=== PATIENT | female | born 1990 | race Caucasian/White ===

== ENCOUNTER 2023-10-21 14:20 | Outpatient (CLI) | payer BC, SELFPAY ==
[2023-10-22 16:28] LABS: Progesterone 18.2 ng/mL
== END 2023-10-21 14:21 | disposition home or self-care (01) ==
LOC: ANHLAB 14:22
PROVIDERS: PCP Nurse Practitioner Family; Visit Provider Nurse Practitioner Family
DX: O36.80X0 Pregnancy with inconclusive fetal viability, not applicable or unspecified (principal); Z3A.00 Weeks of gestation of pregnancy not specified
CPT/HCPCS: 36415; 84144; 84702

== ENCOUNTER 2023-10-23 10:29 | Outpatient (CLI) | payer BC, SELFPAY | END 2023-10-23 10:30 | disposition home or self-care (01) | LOC: ANHLAB 10:30 | PROVIDERS: PCP Nurse Practitioner Family; Visit Provider Nurse Practitioner Family | DX: O36.80X0 Pregnancy with inconclusive fetal viability, not applicable or unspecified (principal); Z3A.00 Weeks of gestation of pregnancy not specified | CPT/HCPCS: 36415; 84702 ==

== ENCOUNTER 2023-10-29 08:19 | Outpatient (CLI) | payer BC, SELFPAY ==
--- NOTE | ~2023-10-29 | US_ITS ---
EXAMINATION: US OB <=14 wk fetus w TV DATE: 10/29/2023 08:45 INDICATION: Gestational dating TECHNIQUE: Real-time transabdominal and transvaginal obstetric ultrasound. FINDINGS: No prior studies for comparison. The uterus measures 8 x 5 x 4.6 cm. There is an intrauterine gestational sac, with pole identif ied. The crown rump length measures 0.27 cm, which correlates with a estimated gestational age of 5 weeks 6 days. heart tones are identified measuring 112 BPM. There is a moderate subchorionic hemorrhage. IMPRESSION: 1. SL IUP with an EGA of 5 weeks, 6 days (EDC by current ultrasound of 06/24/2024). 2: Moderate subchorionic hemorrhage. Reviewed, dictated and finalized at location B. IMPRESSION: 1. SL IUP with an EGA of 5 weeks, 6 days (EDC by current ultrasound of ). 2: Moderate subchorionic hemorrhage.
== END 2023-10-29 08:20 ==
LOC: GOSHIMG 08:20
PROVIDERS: PCP Nurse Practitioner Family; Visit Provider Nurse Practitioner Family
DX: O41.8X10 Other specified disorders of amniotic fluid and membranes, first trimester, not applicable or unspecified (principal); Z3A.00 Weeks of gestation of pregnancy not specified
CPT/HCPCS: 76801; 76817

== ENCOUNTER 2024-02-18 14:41 | Observation (INO) | payer BC, SELFPAY ==
--- NOTE | ~2024-02-18 | US_ITS ---
EXAMINATION: US OB limited DATE: 02/18/2024 15:50 INDICATION: Spotting during second trimester of TECHNIQUE: Real-time ultrasound of the pelvis was performed. The interpreting radiologist was not pre sent for the study. COMPARISON: None. FINDINGS: There is a single living fetus in vertex presentation. The placenta is posterior with caudal margin 3.7 cm from the internal cervical os. Normal cervical length of 4.9 cm. heart rate is 138 beats per minute (bpm). Normal amniotic fluid index of 12.1 cm (5th%-95%: 9.7-21.6 cm at 21 weeks estimate d gestational age). IMPRESSION: 1. Single living fetus in vertex presentation with heart rate of 138 bpm. 2. Normal amniotic fluid index of 12.1 cm. Reviewed, dictated and finalized at location B. ORK MANAGER IMPRESSION: 1. Single living fetus in vertex presentation with heart rate of 138 bpm . 2. Normal amniotic fluid index of 12.1 cm.
--- NOTE | 2024-02-18 15:28 | OBADM ---
This patient, Savannah Rodriguez, admitted to the OB room OB Post 116 for observation. Patient/family oriented to hospital policies and general routines including ID bracelet, bed and alarms, visiting hours, pain management, procedures, bathroom and other care routines, personal items, smoking policy, room service/diet, and visiting hours. Patient/Family are encouraged to report perceived risks to care and to ask questions if they do not understand what they are told or what they should do.
[2024-02-18 15:30] LABS: Add Urine Microscopic? NO; Appearance Urine Clear (Clear); Bilirubin Urine Negative (Negative); Blood Urine Negative (Negative); Color Urine Yellow (Yellow); Glucose Urine UA Negative (Negative); Ketones Urine 2+ mg/dL (Negative); Leukocyte Esterase Ur Negative LEU/UL (Negative); Nitrate Urine Negative (Negative); Protein Urine Negative (Negative); Specific Grav Ur 1.012 (1.001-1.035); Urobilinogen Urine 0.2 mg/dL (<2.0); pH Urine 6.5 (5.0-9.0)
--- NOTE | 2024-02-18 15:40 | PC.NURSE ---
1505--FHT's 150's.Pt does feel movement. Patient denies cramping; no c/o pain.
--- NOTE | 2024-03-05 20:18 | PM.OBTRLD ---
OB - Triage/Final Diagnosis Visit Information Comments/Additional reasons for admission: I have assessed the risk for this patient, Savannah Rodriguez, and determined that she would benefit from observation care. Evaluation Laboratory results: Laboratory Tests 02/18/24 15:11 Urine Color Yellow Urine Appearance Clear Urine pH 6.5 Ur Specific [place] 1.012 Urine Protein Negative Urine Glucose (UA) Negative Urine Ketones 2+ H Ur Blood (Man) Negative Urine Nitrate Negative Urine Bilirubin Negative Urine Urobilinogen 0.2 Leukocyte Esterase Rfl Negative Final Diagnosis (1) Spotting affecting in second trimester: Code(s): O26.852 - Spotting complicating , second trimester Status: Acute
== END 2024-02-18 16:08 | disposition home or self-care (01) ==
PROVIDERS: Admitting Provider Obstetrics & Gynecology; PCP Nurse Practitioner Family; Visit Provider Obstetrics & Gynecology
DX: O26.852 Spotting complicating pregnancy, second trimester (principal); Z3A.21 21 weeks gestation of pregnancy
CPT/HCPCS: 76815; 81003; G0378; G0379

== ENCOUNTER 2024-05-23 08:48 | Outpatient (CLI) | payer OTHER, SELFPAY ==
--- NOTE | ~2024-05-23 | US_ITS ---
EXAMINATION: US OB limited DATE: 05/23/2024 11:03 INDICATION: Variable cardiac decelerations. Assess amniotic fluid index. TECHNIQUE: Real-time ultrasound of the pelvis was performed. The interpreting radiologist was not pre sent for the study. COMPARISON: None. FINDINGS: There is a single living fetus in vertex presentation. The placenta is fundal. heart rate is 1 67 beats per minute (bpm). The amniotic fluid index is 7.0 cm, which is below the normal range (5th%- 95%: 7.9-24.9 cm at 35 weeks estimated gestational age). IMPRESSION: 1. Single living fetus in vertex presentation with heart rate of 167 bpm. 2. Oligohydramnios with mildly decreased amniotic fluid index of 7.0 cm. Reviewed, dictated and finalized at location A. ITAL NURSE IMPRESSION: 1. Single living fetus in vertex presentation with heart rate of 167 bpm . 2. Oligohydramnios with mildly decreased amniotic fluid index of 7.0 cm.
--- OUTSIDE RECORDS SUMMARY | 2024-05-23 08:59 | XMS_ITS | Patient Health Summary ---
Author Organization [facility] [employer] Address [address] [place] [address] Care Team Providers Care Receivable Clerk Name Role Phone Unavailable Primary Care Provider Unavailabl e Note from [facility],non-owned Affiliates and Associated Physician Practices is amultiple site organization consisting of ambulatory clinics and hospital sitesin [place], [place], [place] and [place]. This disclosure is being madepursuant to the Care Everywhere program and may not contain all information available regarding this patient. Last updated 17.[facility] [employer] Allergies No known active allergies Medications * Be aware that medications may not be up to date on this document. Alwaysverify current medications with the patient. * Vit-Fe Fumarate-FA ( vitamin) 28-0.8 MG tablet Take 1 (one) tablet by mouth once daily Social History Tobacco Use Types Packs/Day Years Used Date Smoking Tobacco: Never Assessed Estimated Date of Delivery Comme nts Yes 06/24/2024 Based on last me nstrual period of 09/18/2023 Sex and Gender Information Value Date Recorded Sex Assigned at Not on file Gender Identity Not on file Sexual Orientation Not on file Procedures * SONOGRAM - COMPLETE(Performed 04/24/2024) Performed for Encounter for ultrasound to assess growth (HCC), 31 weeks gestation of (HCC) * SONOGRAM - COMPLETE(Performed 02/11/2024) Performed for Encounter for anatomic survey (HCC), 20 weeks gestation of (HCC) Results * SONOGRAM - COMPLETE (04/24/2024 8:11 AM PIECE PRESSER) Only the most recent of2 resultswithin the time period is included. Linked Results Indication ======== Small for dates History ====== OB History 2. Para 0 [id number] Lab Tests Test Date Result NIPT Low risk (per patient) Maternal Assessment Physical Exam Height 160 cm, 5 ft 3 in. Weight 67 kg, 148 lb. Initial weight 58 kg, 128 lb. BMI 26.22 kg/m . Initial BMI 22.67 kg/m . Weight gain 9 kg, 20 lb Method ====== Transabdominal ultrasound. View: Sufficient ========= [place] . Number of fetuses: 1 Dating ====== Date Details Gest. age LINH LMP 09/18/2023 31 w + 2 d 06/24/2024 Stated LINH 31 w + 2 d 06/24/2024 U/S 04/24/2024 based upon AC, BPD, Femur, HC 31 w + 2 d 06/24/2024 Assigned dating based on the LMP, selected on 02/11/2024 31 w + 2 d 06/24/2024 General Evaluation Cardiac activity present. FHR 142 bpm. Presentation: cephalic Placenta: Placental site: posterior Amniotic fluid: Amount of AF: normal. MVP 4.1 cm. FEMI 11.9 cm. Q1 2.8 cm, Q2 2.6 cm, Q3 4.1 cm, Q4 2.4 cm Biometry BPD 76.3 mm 30w 4d 20% Hadlock HC 288.3 mm 31w 5d 24% Hadlock AC 272.7 mm 31w 2d 49% Hadlock Femur 60.6 mm 31w 4d 42% Hadlock Humerus 53.5 mm 31w 1d 49% Ewa HC / AC 1.06 Weight Calculation: EFW 1,753 g 41% Hadlock EFW (lb,oz) 3 lb 14 oz EFW by Hadlock ([id number]) appropriate Growth Overview Exam date GA BPD (mm) HC (mm) AC (mm) FL (mm) HL (mm) EFW (g) 02/11/2024 20w 6d 51.3 76% 189 56% 157.6 45% 36.9 72% 34.2 75% 413 68% 04/24/2024 31w 2d 76.3 20% 288.3 24% 272.7 49% 60.6 42% 53.5 49% 1753 41% Anatomy The following structures appear normal: Abdomen Stomach. Kidneys. Bladder. Impression ========= Single, live, intrauterine at 31w 2d size is appropriate Amniotic fluid volume: normal No major malformations were seen within the limits of ultrasound Follow-up ======== Follow up as clinically indicated Coding ====== Procedures 25189: US Preg Uterus Follow Up [employer] PACS Anatomical Region Laterality Modality Other 04/24/2024 8:11 AM PIECE PRESSER Frederick Roach MD [facility] ORDERABLES
--- OUTSIDE RECORDS SUMMARY | 2024-05-23 08:59 | XMS_ITS | Clinical Summary ---
Author Organization [facility] Address [address] [place] [address] Care Team Providers Care Structural Engineering Technician Name Role Phone Unavailable Primary Care Provider Unavailabl e Source Comments [facility],non-owned Affiliates and Associated Physician Practices is amultiple site organization consisting of ambulatory clinics and hospital sitesin [place], [place], [place] and [place]. This disclosure is being madepursuant to the Care Everywhere program and may not contain all information available regarding this patient. Last updated 17.[facility] [employer] Allergies No known active allergies Medications * Be aware that medications may not be up to date on this document. Alwaysverify current medications with the patient. Medication Sig Dispensed Refills Start Date End Date Status Vit-Fe Fumarate-FA ( vitamin) 28-0.8 MG tablet Take 1 (one) tablet by mouth once daily Active Encounters Date Type Department Care Team Description 04/24/2024 8:08 AM SENIOR ELECTRONICS ENGINEER - 04/24/2024 11:59 PM SENIOR ELECTRONICS ENGINEER Hospital Encounter [facility] Maternal & Care [address] [place] [id number] Head, Ines Loera MD Discharge Disposition: Home or Self Care from Last 3 Months Social History Tobacco Use Types Packs/Day Years Used Date Smoking Tobacco: Never Assessed Estimated Date of Delivery Comme nts Yes 06/24/2024 Based on last me nstrual period of 09/18/2023 Sex and Gender Information Value Date Recorded Sex Assigned at Not on file Gender Identity Not on file Sexual Orientation Not on file Plan of Treatment Upcoming Encounters Date Type Department Care Team (Late st Contact Info) Description 05/26/2024 7:30 AM SENIOR ELECTRONICS ENGINEER Hospital Encounter [facility] Maternal & Care [address] [place] [address] Health Maintenance Due Date Last Done Comments PAP SMEAR 1990 HIV SCREENING 2005 HEPATITIS C SCREENING 05/30/2008 DTAP/TDAP/TD VACCINES (1 - Tdap) 2009 HEPATITIS B VACCINE (1 of 3 - 19+ 3-dose series) 2009 COVID-19 VACCINE (3 - 2023-2 5 season) 2023 08/15/2020, 07/15/2020 INFLUENZA VACCINE (#1) 2023 OB-ONE HOUR GLUCOSE 03/18/2024 OB-TDAP CURRENT 03/25/2024 OB-RHOGAM INJECTION 04/01/2024 DEPRESSION SCREENING 04/05/2024 OB-GROUP B STREP SCREEN 05/20/2024 ZOSTER VACCINE (1 of 2) 2040 HIB VACCINE Aged Out No longer eligi ble based on patient's age to complete this topic HPV VACCINE Aged Out No longer eligi ble based on patient's age to complete this topic MENINGOCOCCAL (Group B) VACCINE Aged Out No longer eligible b ased on patient's age to complete this topic MENINGOCOCCAL VACCINE Aged Out No josh sonu eligible based on patient's age to complete this topic PNEUMOCOCCAL VACCINE Aged Out No long er eligible based on patient's age to complete this topic Respiratory Syncytial Virus (RSV) Vaccine Pt: or over 60 yrs (No Doses Required) Completed Procedures Procedure Name Priority Date/Time Associated Diagnosis Comments SONOGRAM - COMPLETE Routine 04/24/2024 8 :11 AM SENIOR ELECTRONICS ENGINEER Encounter for ultrasound to assess growth (HCC) 31 weeks gestation of (HCC) from Last 3 Months Results * SONOGRAM - COMPLETE (04/24/2024 8:11 AM SENIOR ELECTRONICS ENGINEER) Linked Results Indication ======== Small for dates History ====== OB History 2. Para 0 [id number] Lab Tests Test Date Result NIPT Low [...] 3 lb 14 oz EFW by Hadlock ([id number]) appropriate Growth Overview Exam date GA BPD [...] up as clinically indicated Coding ====== Procedures [id number]: US Preg Uterus Follow Up [facility] [employer] PACS Anatomical Region Laterality Modality Other 04/24/2024 8:11 AM SENIOR ELECTRONICS ENGINEER Frederick Roach MD [facility] ORDERABLES from Last 3 Months
--- OUTSIDE RECORDS SUMMARY | 2024-05-23 08:59 | XMS_ITS | Referral Summary ---
Author Organization [facility] Address [address] [place] [address] Care Team Providers Care Adult Health Clinical Nurse Specialist Name Role Phone Unavailable Primary Care Provider Unavailabl e Source Comments [facility],non-owned Affiliates and Associated Physician Practices is amultiple site organization consisting of ambulatory clinics and hospital sitesin [place], [place], [place] and [place]. This disclosure is being madepursuant to the Care Everywhere program and may not contain all information available regarding this patient. Last updated 17.[facility] Encounters Date Type Department Care Team Description 04/24/2024 8:08 AM IT QUALITY ANALYST - 04/24/2024 11:59 PM IT QUALITY ANALYST Hospital Encounter [facility] Maternal & Care [address] [place] [address] [phone] Head, Ines Loera MD Discharge Disposition: Home or Self Care from Last 3 Months Allergies No known active allergies Medications * Be aware that medications may not be up to date on this document. Alwaysverify current medications with the patient. Medication Sig Dispensed Refills Start Date End Date Status Vit-Fe Fumarate-FA ( vitamin) 28-0.8 MG tablet Take 1 (one) tablet by mouth once daily Active Social History Tobacco Use Types Packs/Day Years [...] st Contact Info) Description 05/26/2024 7:30 AM IT QUALITY ANALYST Hospital Encounter [facility] Maternal & Care [address] [place] [id number] Procedures Procedure Name Priority Date/Time Associated Diagnosis Comments SONOGRAM - COMPLETE Routine 04/24/2024 8 :11 AM IT QUALITY ANALYST Encounter for ultrasound to assess growth (HCC) 31 weeks gestation of (HCC) from Last 3 Months Results * SONOGRAM - COMPLETE (04/24/2024 8:11 AM IT QUALITY ANALYST) Linked Results Indication ======== Small for dates History ====== OB History 2. Para 0 [id number] Lab Tests Test Date Result NIPT Low [...] 3 lb 14 oz EFW by Hadlock ([id number]) appropriate Growth Overview Exam date GA BPD [...] up as clinically indicated Coding ====== Procedures [id number]: US Preg Uterus Follow Up [facility] [employer] PACS Anatomical Region Laterality Modality Other 04/24/2024 8:11 AM IT QUALITY ANALYST Frederick Roach MD [facility] ORDERABLES from Last 3 Months
[2024-05-23 09:16] VITALS: BP 135/90; PULSE 95
[2024-05-23 09:17] LABS: Basophils Absolute Auto 0.1 K/mm3 (0.0-0.1); Basophils Percent Auto 0.5 % (0.2-1.2); Eosinophils Absolute Auto 0.1 K/mm3 (0-0.3); Eosinophils Percent Auto 1.1 % (0-4.4); Hematocrit 42.4 % (37.0-47.0); Hemoglobin 14.2 g/dL (12.0-15.0); Immature Granulocyte Absolute 0.07 K/mm3 (0.00-0.031); Immature Granulocyte Percent A 0.6 % (0-0.5); Lymphocytes Absolute Auto 1.55 K/mm3 (0.9-3.2); Lymphocytes Percent Auto 13.7 % (18.3-44.2); Mean Corpuscular HGB Conc 33.5 g/dl (32-36); Mean Corpuscular Hemoglobin 33.1 pg (26-34); Mean Corpuscular Volume 98.8 fl (80-100); Monocytes Absolute Auto 1.2 K/mm3 (0.1-0.6); Monocytes Percent Auto 10.7 % (2.6-8.5); Neutrophils Absolute Auto 8.3 K/mm3 (1.3-6.7); Neutrophils Percent Auto 73.4 % (45.5-73.1); Platelet Count Result 216 k/mm3 (150-375); Red Blood Count 4.29 M/mm3 (4.2-5.4); White Blood Count 11.3 K/mm3 (4.5-10.0)
[2024-05-23 09:29] LABS: Alanine Aminotransferase 23 U/L (6-35); Albumin Level 3.5 g/dL (3.5-5.1); Alkaline Phosphatase 102 U/L (38-126); Anion Gap 4 mmol/L (4-12); Aspartate Amino Transferase 28 U/L (14-36); Bilirubin,Total 0.6 mg/dL (0.2-1.3); Blood Urea Nitrogen 10 mg/dL (7-17); Calcium 9.6 mg/dL (8.4-10.2); Carbon Dioxide 27 mmol/L (22-30); Chloride 102 mmol/L (98-107); Estimated Glomerular Filt Rate > 60; Glucose 79 mg/dL (65-110); Potassium 4.1 mmol/L (3.4-5.0); Sodium 133 mmol/L (137-145); Uric Acid 5.9 mg/dL (2.5-7.5)
[2024-05-23 09:31] VITALS: BP 136/85; PULSE 86
[2024-05-23 09:36] VITALS: BMI 26.6
[2024-05-23 09:36] LABS: Total Protein Urine Random 7 mg/dL; Ur Ttl Prot Creatinine Ratio 0.14 mg/mg (0-0.20)
[2024-05-23 09:43] LABS: Add Urine Microscopic? YES; Appearance Urine Cloudy (Clear); Bacteria Urine 1+ /hpf; Bilirubin Urine Negative (Negative); Blood Urine Negative (Negative); Color Urine Yellow (Yellow); Glucose Urine UA Negative (Negative); Ketones Urine Negative (Negative); Leukocyte Esterase Ur Trace LEU/UL (Negative); Need Manual Microscopic Reviewed; Nitrate Urine Negative (Negative); Non Pathogenic Casts 0-2; Protein Urine Negative (Negative); RBC Urine 0-2 /hpf (0-2); Squamous Epithelial Cell Urine Many /hpf (Few); Urobilinogen Urine 0.2 mg/dL (<2.0)
[2024-05-23 09:46] VITALS: BP 132/82; PULSE 78
[2024-05-23 10:01] VITALS: BP 140/85; PULSE 77
[2024-05-23 10:16] VITALS: BP 132/85; PULSE 70
[2024-05-23 10:31] VITALS: BP 131/84; PULSE 77
== END 2024-05-23 11:30 | disposition home or self-care (01) ==
LOC: ANHOBOP 08:53 → ANHOBPP 08:54
PROVIDERS: Visit Provider Obstetrics & Gynecology
DX: O13.9 Gestational [pregnancy-induced] hypertension without significant proteinuria, unspecified trimester (principal); Z3A.00 Weeks of gestation of pregnancy not specified
CPT/HCPCS: 36415; 59025; 76815; 80053; 81001; 82570; 84156; 84550; 85025; 99199

== ENCOUNTER 2024-05-24 13:36 | Outpatient (CLI) | payer OTHER, SELFPAY ==
[2024-05-24 13:47] VITALS: BMI 26.6
--- OUTSIDE RECORDS SUMMARY | 2024-05-24 13:47 | XMS_ITS | Referral Summary ---
Author Organization [facility] Address [address] [place] [address] Care Team Providers Care In Process Inspector Name Role Phone Unavailable Primary Care Provider Unavailabl e Source Comments [facility],non-owned Affiliates and Associated Physician Practices is amultiple site organization consisting of ambulatory clinics and hospital sitesin [place], [place], [place] and [place]. This disclosure is being madepursuant to the Care Everywhere program and may not contain all information available regarding this patient. Last updated 17.[facility] Encounters Date Type Department Care Team Description 04/24/2024 8:08 AM CHILD PSYCHOMETRIST - 04/24/2024 11:59 PM CHILD PSYCHOMETRIST Hospital Encounter [facility] Maternal & Care [address] [place] [address] [phone] Head, Ines Loera MD Discharge Disposition: Home [...] st Contact Info) Description 05/26/2024 7:30 AM CHILD PSYCHOMETRIST Hospital Encounter [facility] M[facility] & Care [address] [place] [phone] Akosua Ellison MD [address] [place] [address] Procedures Procedure Name Priority Date/Time Associated Diagnosis Comments SONOGRAM - COMPLETE Routine 04/24/2024 8 :11 AM CHILD PSYCHOMETRIST Encounter for ultrasound to assess growth (HCC) 31 weeks gestation of (HCC) from Last 3 Months Results * SONOGRAM - COMPLETE (04/24/2024 8:11 AM CHILD PSYCHOMETRIST) Linked Results Indication ======== Small for dates History ====== OB History 2. Para 0 [id number] Lab Tests Test Date Result NIPT Low [...] 3 lb 14 oz EFW by Hadlock ([id number]) appropriate Growth Overview Exam date GA BPD [...] up as clinically indicated Coding ====== Procedures [id number]: US Preg Uterus Follow Up [facility] [employer] PACS Anatomical Region Laterality Modality Other 04/24/2024 8:11 AM CHILD PSYCHOMETRIST Frederick Roach MD [facility] ORDERABLES from Last 3 Months
--- OUTSIDE RECORDS SUMMARY | 2024-05-24 13:47 | XMS_ITS | Clinical Summary ---
Author Organization [facility] Address [address] [place] [address] Care Team Providers Care Anatomic Pathology Manager Name Role Phone Unavailable Primary Care Provider Unavailabl e Source Comments [facility],non-owned Affiliates and Associated Physician Practices is amultiple site organization consisting of ambulatory clinics and hospital sitesin [place], [place], [place] and [place]. This disclosure is being madepursuant to the Care Everywhere program and may not contain all information available regarding this patient. Last updated 17.[facility] [employer] Allergies No known active allergies Medications * Be aware that medications may not be up to date on this document. Alwaysverify current medications with the patient. Medication Sig Dispensed Refills Start Date End Date Status Vit-Fe Fumarate-FA ( vitamin) 28-0.8 MG tablet Take 1 (one) tablet by mouth once daily Active Encounters Date Type Department Care Team Description 04/24/2024 8:08 AM INJECTION MAINTENANCE TECHNICIAN - 04/24/2024 11:59 PM INJECTION MAINTENANCE TECHNICIAN Hospital Encounter [facility] Maternal & Care [address] [place] [phone] Head, Ines Loera MD Discharge Disposition: Home [...] st Contact Info) Description 05/26/2024 7:30 AM INJECTION MAINTENANCE TECHNICIAN Hospital Encounter [facility] Maternal & Care [address] [phone] Akosua Ellison MD [address] [place] [address] [address] [place] [address] Health Maintenance Due Date Last Done Comments PAP SMEAR 1990 HIV SCREENING 2005 HEPATITIS C SCREENING 05/30/2008 DTAP/TDAP/TD VACCINES (1 - Tdap) 2009 HEPATITIS B VACCINE (1 of 3 - 19+ 3-dose series) 2009 COVID-19 VACCINE (2023-2 5 season) 2023 08/15/2020, 07/15/2020 INFLUENZA VACCINE [...] - COMPLETE Routine 04/24/2024 8 :11 AM INJECTION MAINTENANCE TECHNICIAN Encounter for ultrasound to assess growth (HCC) 31 weeks gestation of (HCC) from Last 3 Months Results * SONOGRAM - COMPLETE (04/24/2024 8:11 AM INJECTION MAINTENANCE TECHNICIAN) Linked Results Indication ======== Small for dates History ====== OB History 2. Para 0 [id number] Lab Tests Test Date Result NIPT Low [...] 3 lb 14 oz EFW by Hadlock ([id number]) appropriate Growth Overview Exam date GA BPD [...] up as clinically indicated Coding ====== Procedures [id number]: US Preg Uterus Follow Up [employer] PACS Anatomical Region Laterality Modality Other 04/24/2024 8:11 AM INJECTION MAINTENANCE TECHNICIAN Frederick Roach MD [facility] ORDERABLES from Last 3 Months
--- OUTSIDE RECORDS SUMMARY | 2024-05-24 13:47 | XMS_ITS | Patient Health Summary ---
Author Organization [facility] [employer] Address [address] [place] [address] Care Team Providers Care Senior Branch Manager Name Role Phone Unavailable Primary Care Provider Unavailabl e Note from [facility],non-owned Affiliates and Associated Physician Practices is amultiple site organization consisting of ambulatory clinics and hospital sitesin [place], [place], [place] and [place]. This disclosure is being madepursuant to the Care Everywhere program and may not contain all information available regarding this patient. Last updated 17.[facility] [employer] Allergies No known active allergies Medications * [...] * SONOGRAM - COMPLETE (04/24/2024 8:11 AM LITIGATION COORDINATOR) Only the most recent of2 resultswithin the time period is included. Linked Results Indication ======== Small for dates History ====== OB History 2. Para 0 [id number] Lab Tests Test Date Result NIPT Low [...] 3 lb 14 oz EFW by Hadlock ([id number]) appropriate Growth Overview Exam date [place] BPD [...] up as clinically indicated Coding ====== Procedures [id number]: US Preg Uterus Follow Up [employer] PACS Anatomical Region Laterality Modality Other 04/24/2024 8:11 AM LITIGATION COORDINATOR Frederick Roach MD [facility] ORDERABLES
[2024-05-24 15:07] LABS: Collection Time Urine 24 HOURS
[2024-05-24 15:24] LABS: Patient Weight 155 Lbs
[2024-05-24 15:32] LABS: Total Volume 24 Hour Urine 2400 ml
[2024-05-24 15:36] LABS: Creatinine Clearance Urine 163.1 ml/min (75-125); Creatinine Urine 76.2 mg/dL; Serum Creat 0.77
[2024-05-24 15:51] LABS: Total Protein Urine Random < 5 mg/dL
[2024-05-24 16:05] LABS: Total Protein Urine 24 Hr < 120 mg/24hr (28-141)
[2024-05-24 17:10] LABS: Specific Gravity Ur 1.015
== END 2024-05-24 13:37 | disposition home or self-care (01) ==
LOC: ANHOBOP 13:44
PROVIDERS: Visit Provider Obstetrics & Gynecology
DX: O13.9 Gestational [pregnancy-induced] hypertension without significant proteinuria, unspecified trimester (principal); Z3A.00 Weeks of gestation of pregnancy not specified
CPT/HCPCS: 81050; 82575; 84156

== ENCOUNTER 2024-05-30 09:39 | Outpatient (CLI) | payer OTHER, SELFPAY ==
[2024-05-30] VITALS (11 sets, daily range): BP systolic 118–145; BP diastolic 67–82; PULSE 73–84; BMI 26.6
--- NOTE | ~2024-05-30 | US_ITS ---
EXAMINATION: US OB limited DATE: 05/30/2024 12:02 ASSISTED LIVING EXECUTIVE DIRECTOR INDICATION: Amniotic fluid index check COMPARISON: 01/05/2024 TECHNIQUE: Real-time transabdominal obstetric ultrasound. FINDINGS: 1 para 0 Estimated date of delivery by prior ultrasound is 06/24/2024 Amniotic fluid is subjectively low with the index measuring 4.65 cm (normal range is 7.7 cm to 24.9 c m). The cervix measures 3.1 cm, and is closed. A single intrauterine gestation is identified in vertex position with the placenta in the fundus. cardiac activity is identified at a rate of 149 bpm. IMPRESSION: Oligohydramnios. Single intrauterine gestation with an approximate gestational age of 36 weeks and 3 days, with cardiac activity identified. Vertex positioning. The cervix is closed, measuring 3.1 cm. Reviewed, dictated and finalized at location A. STED LIVING EXECUTIVE DIRECTOR IMPRESSION: Oligohydramnios. Single intrauterine gestation with an approximate gestational age of 36 weeks a nd 3 days, with cardiac activity identified. Vertex positioning. The cervix is closed, measuring 3.1 cm.
[2024-05-30 10:21] LABS: Add Urine Microscopic? NO; Appearance Urine Clear (Clear); Bilirubin Urine Negative (Negative); Blood Urine Negative (Negative); Color Urine Yellow (Yellow); Glucose Urine UA Negative (Negative); Ketones Urine 1+ mg/dL (Negative); Leukocyte Esterase Ur Negative LEU/UL (Negative); Nitrate Urine Negative (Negative); Protein Urine Negative (Negative); Specific Grav Ur 1.014 (1.001-1.035); Urobilinogen Urine 0.2 mg/dL (<2.0)
[2024-05-30 10:31] LABS: Alanine Aminotransferase 20 U/L (6-35); Albumin Level 3.7 g/dL (3.5-5.1); Alkaline Phosphatase 121 U/L (38-126); Anion Gap 11 mmol/L (4-12); Aspartate Amino Transferase 27 U/L (14-36); Bilirubin,Total 0.8 mg/dL (0.2-1.3); Blood Urea Nitrogen 11 mg/dL (7-17); Calcium 9.6 mg/dL (8.4-10.2); Carbon Dioxide 20 mmol/L (22-30); Chloride 104 mmol/L (98-107); Estimated CRCL calculation 79 ml/min; Estimated Glomerular Filt Rate > 60; Glucose 73 mg/dL (65-110); Potassium 3.7 mmol/L (3.4-5.0); Sodium 135 mmol/L (137-145); Uric Acid 6.3 mg/dL (2.5-7.5)
[2024-05-30 10:42] LABS: Basophils Percent Auto 0.3 % (0.2-1.2); Eosinophils Absolute Auto 0.1 K/mm3 (0-0.3); Eosinophils Percent Auto 0.5 % (0-4.4); Hematocrit 40.3 % (37.0-47.0); Hemoglobin 13.7 g/dL (12.0-15.0); Immature Granulocyte Absolute 0.04 K/mm3 (0.00-0.031); Immature Granulocyte Percent A 0.4 % (0-0.5); Lymphocytes Absolute Auto 1.21 K/mm3 (0.9-3.2); Lymphocytes Percent Auto 11.5 % (18.3-44.2); Mean Corpuscular Hemoglobin 33.3 pg (26-34); Mean Corpuscular Volume 98.1 fl (80-100); Mean Platelet Volume 10.4 fl (7.4-10.4); Monocytes Absolute Auto 0.9 K/mm3 (0.1-0.6); Monocytes Percent Auto 8.3 % (2.6-8.5); Neutrophils Absolute Auto 8.3 K/mm3 (1.3-6.7); Platelet Count Result 204 k/mm3 (150-375); Red Blood Count 4.11 M/mm3 (4.2-5.4); Red Cell Distribution Width 13.2 % (11.5-14.5); White Blood Count 10.5 K/mm3 (4.5-10.0)
--- OUTSIDE RECORDS SUMMARY | 2024-05-30 10:47 | XMS_ITS | Clinical Summary ---
Author Organization [facility] Address [address] [place] [address] Care Team Providers Care Payroll Consultant Name Role Phone Unavailable Primary Care Provider Unavailabl e Source Comments [facility],non-owned Affiliates and Associated Physician Practices is amultiple site organization consisting of ambulatory clinics and hospital sitesin [place], [place], [place] and [place]. This disclosure is being madepursuant to the Care Everywhere program and may not contain all information available regarding this patient. Last updated 17.[facility] Allergies No known active allergies Medications * Be aware that medications may not be up to date on this document. Alwaysverify current medications with the patient. Medication Sig Dispensed Refills Start Date End Date Status Vit-Fe Fumarate-FA ( vitamin) 28-0.8 MG tablet Take 1 (one) tablet by mouth once daily Active Encounters Date Type Department Care Team Description 05/26/2024 7:29 AM CLIN NURSE - 05/26/2024 11:59 PM CLIN NURSE Hospital Encounter [facility] Maternal & Care [address] [place] [address] Akosua Ellison MD Discharge Disposition: Home or Self Care 04/24/2024 8:08 AM CLIN NURSE - 04/24/2024 11:59 PM CLIN NURSE Hospital Encounter [facility] Maternal & Care [address] [place] [address] Head, Ines Loera MD Discharge Disposition: Home [...] Orientation Not on file Plan of Treatment Health Maintenance Due Date Last Done Comments [...] Associated Diagnosis Comments SONOGRAM - COMPLETE Routine 05/26/2024 7 :29 AM CLIN NURSE Encounter for ultrasound to assess growth (HCC) 35 weeks gestation of (HCC) SONOGRAM - COMPLETE Routine 04/24/2024 8 :11 AM CLIN NURSE Encounter for ultrasound to assess growth (HCC) 31 weeks gestation of (HCC) from Last 3 Months Results * SONOGRAM - COMPLETE (05/26/2024 7:29 AM CLIN NURSE) Only the most recent of2 resultswithin the time period is included. Linked Results Indication ======== Small for dates History ====== OB History 2. Para 0 [id number] Lab Tests Test Date Result NIPT Low risk (per patient) Maternal Assessment Physical Exam Height 160 cm, 5 ft 3 in. Weight 70 kg, 155 lb. Initial weight 58 kg, 128 lb. BMI 27.46 kg/m . Initial BMI 22.67 kg/m . Weight gain 12 kg, 27 lb Method ====== Transabdominal ultrasound. View: Sufficient ========= [place] . Number of fetuses: 1 Dating ====== Date Details Gest. age LINH LMP 09/18/2023 35 w + 6 d 06/24/2024 Stated LINH 35 w + 6 d 06/24/2024 U/S 05/26/2024 based upon AC, BPD, Femur, HC 35 w + 3 d 06/27/2024 Assigned dating based on the LMP, selected on 02/11/2024 35 w + 6 d 06/24/2024 General Evaluation Cardiac activity present. FHR 150 bpm. Presentation: cephalic Placenta: Placental site: posterior Amniotic fluid: Amount of AF: normal. MVP 4.0 cm. FEMI 10.1 cm. Q1 2.0 cm, Q2 4.0 cm, Q3 2.0 cm, Q4 2.2 cm Biometry BPD 87.6 mm 35w 3d 43% Hadlock HC 313.9 mm 35w 1d 9% Hadlock AC 318.1 mm 35w 5d 56% Hadlock Femur 68.8 mm 35w 2d 31% Hadlock Humerus 59.1 mm 34w 2d 29% Ewa HC / AC 0.99 Weight Calculation: EFW 2,701 g 41% Hadlock EFW (lb,oz) 5 lb 15 oz EFW by Hadlock ([id number]) appropriate Growth Overview Exam date GA BPD (mm) HC (mm) AC (mm) FL (mm) HL (mm) EFW (g) 02/11/2024 20w 6d 51.3 76% 189 56% 157.6 45% 36.9 72% 34.2 75% 413 68% 04/24/2024 31w 2d 76.3 20% 288.3 24% 272.7 49% 60.6 42% 53.5 49% 1753 41% 05/26/2024 35w 6d 87.6 43% 313.9 9% 318.1 56% 68.8 31% 59.1 29% 2701 41% Anatomy The following structures appear normal: Abdomen Stomach. Kidneys. Bladder. Impression ========= Single, live, intrauterine at 35w 6d size and interval growth are appropriate Amniotic fluid volume: normal No major malformations were seen within the limits of ultrasound Follow-up ======== Follow up as clinically indicated Coding ====== Procedures 15801: US Preg Uterus Follow Up [facility] [employer] PACS Anatomical Region Laterality Modality Other 05/26/2024 7:29 AM CLIN NURSE Frederick Roach MD [facility] ORDERABLES from Last 3 Months
--- OUTSIDE RECORDS SUMMARY | 2024-05-30 10:47 | XMS_ITS | Patient Health Summary ---
Author Organization [facility] [employer] Address [address] [place] [address] Care Team Providers Care Compliance Manager Name Role Phone Unavailable Primary Care Provider Unavailabl e Note from [facility],non-owned Affiliates and Associated Physician Practices is amultiple site organization consisting of ambulatory clinics and hospital sitesin [place], [place] and [place]. This disclosure is being madepursuant to the Care Everywhere program and may not contain all information available regarding this patient. Last updated 17.[facility] Allergies No known active allergies Medications * [...] on file Procedures * SONOGRAM - COMPLETE(Performed 05/26/2024) Performed for Encounter for ultrasound to assess growth (HCC), 35 weeks gestation of (HCC) * SONOGRAM - COMPLETE(Performed 04/24/2024) Performed for Encounter for ultrasound to assess growth (HCC), 31 weeks gestation of (HCC) * SONOGRAM - COMPLETE(Performed 02/11/2024) Performed for Encounter for anatomic survey (HCC), 20 weeks gestation of (HCC) Results * SONOGRAM - COMPLETE (05/26/2024 7:29 AM MULTIGRAPHER) Only the most recent of3 resultswithin the time period is included. Linked Results Indication ======== Small for dates History ====== OB History 2. Para 0 [id number] Lab Tests Test Date Result NIPT Low [...] 5 lb 15 oz EFW by Hadlock ([id number]) appropriate Growth Overview Exam date GA BPD [...] up as clinically indicated Coding ====== Procedures [id number]: US Preg Uterus Follow Up [facility] [employer] PACS Anatomical Region Laterality Modality Other 05/26/2024 7:29 AM MULTIGRAPHER Frederick Roach MD [facility] ORDERABLES
--- OUTSIDE RECORDS SUMMARY | 2024-05-30 10:47 | XMS_ITS | Referral Summary ---
Author Organization [facility] Address [address] [place] [address] Care Team Providers Care Brick Carrier Name Role Phone Unavailable Primary Care Provider Unavailabl e Source Comments [facility],non-owned Affiliates and Associated Physician Practices is amultiple site organization consisting of ambulatory clinics and hospital sitesin [place], [place], [place] and [place]. This disclosure is being madepursuant to the Care Everywhere program and may not contain all information available regarding this patient. Last updated 17.[facility] Encounters Date Type Department Care Team Description 05/26/2024 7:29 AM VINYL CUTTER - 05/26/2024 11:59 PM VINYL CUTTER Hospital Encounter [facility] Maternal & Care [address] [place] [id number] Akosua Ellison MD Discharge Disposition: Home or Self Care 04/24/2024 8:08 AM VINYL CUTTER - 04/24/2024 11:59 PM [facility] Hospital Encounter [facility] Maternal & Care [address] [place] [id number] Head, Ines Loera MD Discharge Disposition: Home [...] Orientation Not on file Plan of Treatment Not on file Procedures Procedure Name Priority Date/Time Associated Diagnosis Comments SONOGRAM - COMPLETE Routine 05/26/2024 7 :29 AM VINYL CUTTER Encounter for ultrasound to assess growth (HCC) 35 weeks gestation of (HCC) SONOGRAM - COMPLETE Routine 04/24/2024 8 :11 AM VINYL CUTTER Encounter for ultrasound to assess growth (HCC) 31 weeks gestation of (HCC) from Last 3 Months Results * SONOGRAM - COMPLETE (05/26/2024 7:29 AM VINYL CUTTER) Only the most recent of2 resultswithin the time period is included. Linked Results Indication ======== Small for dates History ====== OB History 2. Para 0 [id number] Lab Tests Test Date Result NIPT Low [...] 5 lb 15 oz EFW by Hadlock ([id number]) appropriate Growth Overview Exam date GA BPD [...] up as clinically indicated Coding ====== Procedures [id number]: US Preg Uterus Follow Up [facility] [employer] PACS Anatomical Region Laterality Modality Other 05/26/2024 7:29 AM VINYL CUTTER Frederick Roach MD [facility] ORDERABLES from Last 3 Months
[2024-05-30 11:14] LABS: Creatinine Urine 71.2 mg/dL
[2024-05-30 11:57] LABS: Total Protein Urine Random < 5 mg/dL; Ur Ttl Prot Creatinine Ratio < 0.07 mg/mg (0-0.20)
--- NOTE | 2024-05-30 12:20 | PC.NURSE ---
Spoke with Dr. Luciano, notified of protein creatine ratio and FEMI of 4.65. Per Dr. Luciano she will come talk with pt about plan.
== END 2024-05-30 12:55 | disposition home or self-care (01) ==
LOC: ANHOBOP 09:41 → ANHOBPP 09:43
PROVIDERS: Visit Provider Obstetrics & Gynecology
DX: O13.9 Gestational [pregnancy-induced] hypertension without significant proteinuria, unspecified trimester (principal); Z3A.00 Weeks of gestation of pregnancy not specified
CPT/HCPCS: 36415; 59025; 76815; 80053; 81003; 82570; 84156; 84550; 85025; 86850; 99199

== ENCOUNTER 2024-05-30 16:52 | Inpatient (IN) | payer OTHER, SELFPAY ==
[2024-05-30] VITALS (20 sets, daily range): BP systolic 100–128; BP diastolic 57–89; PULSE 62–98; TEMP 36.3–36.8; O2SAT 90–99; BMI 26.7
--- NOTE | 2024-05-30 17:18 | LDADM ---
This patient, Savannah Rodriguez, was admitted to Labor/Delivery/Recovery 107 on 05/30/24 at 16:52. Plans for labor, pain management and were discussed with patient. Patient/family oriented to hospital policies and general routines including ID bracelet, bed and alarms, visiting hours, pain management, procedures, bathroom and other care routines, personal items, smoking policy, room service/diet and guest tray routines, security routines, and visiting hours. Patient/Family are encouraged to report perceived risks to care and to ask questions if they do not understand what they are told or what they should do. See OBIX for further documentation.
[2024-05-30 18:05] LABS: OBXCEM ROM Plus Negative (Negative)
[2024-05-30] MEDS: miSOPROStol 25 MCG TABLET BUCCAL ×2 (18:11→22:10)
[2024-05-30 18:20] LABS: HIV 1/2 Ab P24 Ag Result Negative (Negative)
--- OUTSIDE RECORDS SUMMARY | 2024-05-30 18:51 | XMS_ITS | Referral Summary ---
Author Organization [facility] Address [address] [place] [address] Care Team Providers Care Warehouse Delivery Manager Name Role Phone Unavailable Primary Care Provider Unavailabl e Source Comments [facility],non-owned Affiliates and Associated Physician Practices is amultiple site organization consisting of ambulatory clinics and hospital sitesin [place], [place], [place] and [place]. This disclosure is being madepursuant to the Care Everywhere program and may not contain all information available regarding this patient. Last updated 17.[facility] Encounters Date Type Department Care Team Description 05/26/2024 7:29 AM LOSS PREVENTION OFFICER - 05/26/2024 11:59 PM LOSS PREVENTION OFFICER Hospital Encounter [facility] Maternal & Care [address] [place] [id number] Akosua Ellison MD Discharge Disposition: Home or Self Care 04/24/2024 8:08 AM LOSS PREVENTION OFFICER - 04/24/2024 11:59 PM [facility] Hospital Encounter [facility] M[facility] [address] [place] [id number] Head, Ines Loera MD Discharge Disposition: Home [...] - COMPLETE Routine 05/26/2024 7 :29 AM LOSS PREVENTION OFFICER Encounter for ultrasound to assess growth (HCC) 35 weeks gestation of (HCC) SONOGRAM - COMPLETE Routine 04/24/2024 8 :11 AM LOSS PREVENTION OFFICER Encounter for ultrasound to assess growth (HCC) 31 weeks gestation of (HCC) from Last 3 Months Results * SONOGRAM - COMPLETE (05/26/2024 7:29 AM LOSS PREVENTION OFFICER) Only the most recent of2 resultswithin the time period is included. Linked Results Indication ======== Small for dates History ====== OB History 2. Para 0 [id number] Lab Tests Test Date Result NIPT Low [...] 5 lb 15 oz EFW by Hadlock ([id number]) appropriate Growth Overview Exam date GA BPD [...] up as clinically indicated Coding ====== Procedures [id number]: US Preg Uterus Follow Up . [facility] [employer] PACS Anatomical Region Laterality Modality Other 05/26/2024 7:29 AM LOSS PREVENTION OFFICER Frederick Roach MD [facility] ORDERABLES from Last 3 Months
--- OUTSIDE RECORDS SUMMARY | 2024-05-30 18:51 | XMS_ITS | Patient Health Summary ---
Author Organization [facility] [employer] Address [address] [place] [address] Care Team Providers Care Director Of Sleep Name Role Phone Unavailable Primary Care Provider Unavailabl e Note from [facility],non-owned Affiliates and Associated Physician Practices is amultiple site organization consisting of ambulatory clinics and hospital sitesin [place], [place], [place] and [place]. This disclosure is being madepursuant to the Care Everywhere program and may not contain all information available regarding this patient. Last updated 17.[facility] [employer] Allergies No known active allergies Medications * [...] * SONOGRAM - COMPLETE (05/26/2024 7:29 AM LETTERPRESS PRINTING MACHINIST) Only the most recent of3 resultswithin the time period is included. Linked Results Indication ======== Small for dates History ====== OB History 2. Para 0 [id number] Lab Tests Test Date Result NIPT Low [...] 5 lb 15 oz EFW by Hadlock ([id number]) appropriate Growth Overview Exam date GA BPD [...] up as clinically indicated Coding ====== Procedures [id number]: US Preg Uterus Follow Up [facility] [employer] PACS Anatomical Region Laterality Modality Other 05/26/2024 7:29 AM [employer] PRINTING MACHINIST Frederick Roach MD [facility] ORDERABLES
--- OUTSIDE RECORDS SUMMARY | 2024-05-30 18:51 | XMS_ITS | Clinical Summary ---
Author Organization [facility] Address [address] [place] [address] Care Team Providers Care Manager Equipment Name Role Phone Unavailable Primary Care Provider Unavailabl e Source Comments [facility],non-owned Affiliates and Associated Physician Practices is amultiple site organization consisting of ambulatory clinics and hospital sitesin [place], [place], [place] and [place]. This disclosure is being madepursuant to the Care Everywhere program and may not contain all information available regarding this patient. Last updated 17.[facility] Allergies No known active allergies Medications * Be aware that medications may not be up to date on this document. Alwaysverify current medications with the patient. Medication Sig Dispensed Refills Start Date End Date Status Vit-Fe Fumarate-FA ( vitamin) 28-0.8 MG tablet Take 1 (one) tablet by mouth once daily Active Encounters Date Type Department Care Team Description 05/26/2024 7:29 AM DIVISION SUPERINTENDENT - 05/26/2024 11:59 PM DIVISION SUPERINTENDENT Hospital Encounter [facility] Maternal & Care [address] [place] [address] Akosua Ellison MD Discharge Disposition: Home or Self Care 04/24/2024 8:08 AM DIVISION SUPERINTENDENT - 04/24/2024 11:59 PM DIVISION SUPERINTENDENT Hospital Encounter [facility] Maternal & Care [address] [place] [address] Head, Ines Loera MD Discharge Disposition: Home [...] - COMPLETE Routine 05/26/2024 7 :29 AM DIVISION SUPERINTENDENT Encounter for ultrasound to assess growth (HCC) 35 weeks gestation of (HCC) SONOGRAM - COMPLETE Routine 04/24/2024 8 :11 AM DIVISION SUPERINTENDENT Encounter for ultrasound to assess growth (HCC) 31 weeks gestation of (HCC) from Last 3 Months Results * SONOGRAM - COMPLETE (05/26/2024 7:29 AM DIVISION SUPERINTENDENT) Only the most recent of2 resultswithin the time period is included. Linked Results Indication ======== Small for dates History ====== OB History 2. Para 0 [id number] Lab Tests Test Date Result NIPT Low [...] 5 lb 15 oz EFW by Hadlock ([id number]) appropriate Growth Overview Exam date [place] BPD [...] up as clinically indicated Coding ====== Procedures [id number]: US Preg Uterus Follow Up [facility] [employer] PACS Anatomical Region Laterality Modality Other 05/26/2024 7:29 AM DIVISION SUPERINTENDENT Frederick Roach MD [facility] ORDERABLES from Last 3 Months
[2024-05-30 19:08] LABS: Syphilis IgG/IgM Antibody Negative (Negative)
[2024-05-31] VITALS (218 sets, daily range): BP systolic 89–172; BP diastolic 47–122; PULSE 25–202; RESP 16–18; TEMP 36.3–36.9; O2SAT 78–100
[2024-05-31] MEDS: miSOPROStol 25 MCG TABLET BUCCAL (01:57)
[2024-05-31] MEDS: LACTATED RINGERS 1,000 ML 125 ML IV CONT ×3 (08:05→15:28)
[2024-05-31] MEDS: AMPICILLIN 2 GM/NS 100 ML 2 GM/100 ML BAG IVPB (08:06)
--- NOTE | 2024-05-31 09:01 | P.PNAN_ITS ---
Anes - Eval Pre Procedure Procedure: Labor epidural Date/Time: 05/31/24 09:01 Surgeon: Ankita Preop Diagnosis: Pain during labor Pre Op Diagnosis: Induction of Labor Patient Data Age: 33 Gender: F Height: 1.63 m Weight: 70.76 kg Last Vital Signs Temp 36.3 C L 05/31/24 05:16 Pulse 89 05/31/24 09:00 BP 124/78 05/31/24 09:00 Pulse Ox 100 05/31/24 07:33 O2 Del Method Room Air 05/30/24 17:00 Allergies Allergy/AdvReac Type Severity Reaction Status Date / Time No Known Allergies Allergy Verified 05/30/24 17:18 Home Medications ?Medication ?Instructions ?Recorded ?Confirmed ?Type cholecalciferol (vit D3) 1,000 1 tablet PO DAILY 07/22/21 05/30/24 History unit-vitamin K2 (MK4) 100 mcg tablet (K2 Plus D3) omega-3 fatty acids 1,000 mg 1,000 mg PO DAILY 07/22/21 05/30/24 History capsule vitamin#30 30 mg iron-10 cap PO 12/07/23 05/19/24 History mg iron-folic acid 1 mg-omg3 capsule Laboratory Tests 05/30/24 05/30/24 05/30/24 17:20 17:21 18:03 Membranes Rupture Rom plus negative (Negative) Syphilis IgG/IgM Ab Negative (Negative) RPR Titer Cancelled RPR Cancelled RPR Titer Add Testing Cancelled T.pallidum Ab (FTA-ABS) Cancelled T.pall Ab(FTA-ABS)Reflex Cancelled HIV 1&2 Ab/P24 Ag 4thGn Negative (Negative) Blood Type A Positive Antibody Screen Negative Patient hx anesthesia problems: none Family hx anesthesia problems: none Results Review: All pre-operative results and documents have been reviewed as part of the pre- operative evaluation. [facility] Past Medical History Medical History Allergies Surgical History Surgical History H/O tooth extraction History of colposcopy [place] teeth removed S/P anterior cruciate ligament surgery Family History Family History Other Asthma Heart disease Hypertension Pancreatic cancer Social History Social History Smoking status: Never smoker Alcohol intake: current Substance use: never Do You Feel Safe in your Home?: Yes Lack of Transportation: No Lack of Food: Never True Current Housing: I Have Housing Concerned About Future Housing: No Difficulty Paying Gas/Electric Bills: No Difficulty Paying for Meds: No Currently Unemployed: No Education: Bachelor's Degree Difficulty w/ Childcare or Family Care: No Spiritual care concerns: No Exam Day of Procedure 05/31/24 09:01 Patient weight: normal Heart: regular rate and rhythm Lungs: clear to auscultation Airway: Mallampati scale class II Neurological: alert and oriented
[2024-05-31] MEDS: AMPICILLIN 1 GM/NS 50 ML 1 GM/50 ML BAG IVPB ×2 (12:00→15:30)
[2024-05-31] MEDS: OXYTOCIN 30 UNITS/NS 500 ML 30 UNITS/500 ML BAG IV CONT (12:20)
[2024-05-31] MEDS: OXYTOCIN 30 UNITS/NS 500 ML 30 UNITS/500 ML BAG 125 UNITS IV CONT (17:23)
--- NOTE | 2024-05-31 19:40 | OBPPTRN ---
Patient transferred to post room #292 via wheelchair. Support person present. Oriented to unit, room, information board, rooming in, admission packet and security measures. Patient verbalizes understanding. in level II nursery.
[2024-05-31] MEDS: ACETAMINOPHEN 325 MG TABLET 650 MG PO (22:20)
--- NOTE | 2024-05-31 23:30 | PC.NURSE ---
initiated pumping with pt due to infant in level 2 nursery. Education given on frequency of pumping, correct flange size, cleaning pump parts and storage of breast milk. Pt verbalized understanding and denied any questions at this time.
[2024-06-01 04:15] VITALS: BP 115/79; PULSE 65; RESP 18; TEMP 36.6; O2SAT 100
[2024-06-01] MEDS: IBUPROFEN 600 MG TABLET PO ×2 (04:15→14:46)
[2024-06-01 06:00] LABS: Hematocrit 40.1 % (37.0-47.0); Hemoglobin 13.4 g/dL (12.0-15.0)
[2024-06-01 07:30] VITALS: BP 106/70; PULSE 76; RESP 16; TEMP 36.3; O2SAT 98
--- NOTE | 2024-06-01 07:41 | PM.IMHP ---
H&P: HPI History of Present Illness Date/Time: 05/31/24 07:41 Chief Complaint: Induction of labor Narrative: 33 y/o G2po at 36 4 with an edc of 06/24/24. PNC significant for gestational hypertension. PIH labs normal. surveillance showed oligohydramnios. She was recommended for induction due to oligo and gestational hypertension. She has been informed of the induction process and risk and benefits. Discussed risk of continuing to include demise. She has agreed to induction of labor. [facility] Past Medical History Medical History Allergies Surgical History Surgical History H/O tooth extraction History of colposcopy [place] teeth removed S/P anterior cruciate ligament surgery Family History Family History Other Asthma Heart disease Hypertension Pancreatic cancer Social History Social History Smoking status: Never smoker Alcohol intake: current Substance use: never Do You Feel Safe in your Home?: Yes Lack of Transportation: No Lack of Food: Never True Current Housing: I Have Housing Concerned About Future Housing: No Difficulty Paying Gas/Electric Bills: No Difficulty Paying for Meds: No Currently Unemployed: No Education: Bachelor's Degree Difficulty w/ Childcare or Family Care: No Spiritual care concerns: No Meds Home Medications and Allergies Home Medications ?Medication ?Instructions ?Recorded ?Confirmed ?Type cholecalciferol (vit D3) 1,000 1 tablet PO DAILY 07/22/21 05/30/24 History unit-vitamin K2 (MK4) 100 mcg tablet (K2 Plus D3) omega-3 fatty acids 1,000 mg 1,000 mg PO DAILY 07/22/21 05/30/24 History capsule vitamin#30 30 mg iron-10 cap PO 12/07/23 05/19/24 History mg iron-folic acid 1 mg-omg3 capsule Allergies Allergy/AdvReac Type Severity Reaction Status Date / Time No Known Allergies Allergy Verified 05/30/24 17:18 Vital Signs Vital Signs - 24 hr 05/31/24 08:00 05/31/24 08:30 05/31/24 09:00 Temperature 98.5 F Pulse Rate 83 79 89 Respiratory Rate 16 Blood Pressure 124/85 128/81 124/78 Pulse Oximetry 05/31/24 09:30 05/31/24 09:40 05/31/24 10:00 Temperature 97.5 F L Pulse Rate 90 93 Respiratory Rate Blood Pressure 124/82 128/86 Pulse Oximetry 05/31/24 10:30 05/31/24 11:00 05/31/24 11:30 Temperature Pulse Rate 93 86 85 Respiratory Rate Blood Pressure 122/79 122/82 128/92 H Pulse Oximetry 05/31/24 11:40 05/31/24 12:00 05/31/24 12:30 Temperature 97.6 F Pulse Rate 80 83 Respiratory Rate Blood Pressure 140/83 127/87 Pulse Oximetry 05/31/24 13:00 05/31/24 13:21 05/31/24 13:22 Temperature Pulse Rate 86 125 H Respiratory Rate Blood Pressure 136/82 133/95 H Pulse Oximetry 99 05/31/24 13:23 05/31/24 13:24 05/31/24 13:26 Temperature 98.1 F Pulse Rate 88 94 Respiratory Rate Blood Pressure 132/86 149/98 H Pulse Oximetry 100 05/31/24 13:27 05/31/24 13:28 05/31/24 13:31 Temperature Pulse Rate 84 74 Respiratory Rate Blood Pressure 116/58 L 123/72 Pulse Oximetry 100 05/31/24 13:32 05/31/24 13:33 05/31/24 13:35 Temperature Pulse Rate 72 83 71 Respiratory Rate Blood Pressure 125/75 129/73 117/77 Pulse Oximetry 05/31/24 13:36 05/31/24 13:38 05/31/24 13:40 Temperature Pulse Rate 78 71 73 Respiratory Rate Blood Pressure 120/75 118/71 112/68 Pulse Oximetry 99 05/31/24 13:41 05/31/24 13:43 05/31/24 13:45 Temperature Pulse Rate 72 75 Respiratory Rate Blood Pressure 118/68 118/62 Pulse Oximetry 100 05/31/24 13:46 05/31/24 13:48 05/31/24 13:50 Temperature Pulse Rate 76 78 76 Respiratory Rate Blood Pressure 119/56 L 121/70 118/68 Pulse Oximetry 100 05/31/24 13:51 05/31/24 13:52 05/31/24 13:54 Temperature Pulse Rate 79 75 Respiratory Rate Blood Pressure 117/71 112/68 Pulse Oximetry 96 05/31/24 13:56 05/31/24 13:58 05/31/24 14:00 Temperature Pulse Rate 79 78 79 Respiratory Rate Blood Pressure 118/66 116/66 118/65 Pulse Oximetry 100 05/31/24 14:01 05/31/24 14:02 05/31/24 14:04 Temperature Pulse Rate 69 81 Respiratory Rate Blood Pressure 110/66 114/72 Pulse Oximetry 100 05/31/24 14:06 05/31/24 14:08 05/31/24 14:10 Temperature Pulse Rate 73 74 74 Respiratory Rate Blood Pressure 115/66 103/74 111/83 Pulse Oximetry 100 05/31/24 14:11 05/31/24 14:13 05/31/24 14:14 Temperature Pulse Rate 79 68 Respiratory Rate Blood Pressure 108/65 104/62 Pulse Oximetry 100 05/31/24 14:16 05/31/24 14:19 05/31/24 14:20 Temperature Pulse Rate 83 77 86 Respiratory Rate Blood Pressure 122/79 121/73 127/89 Pulse Oximetry 100 05/31/24 14:21 05/31/24 14:22 05/31/24 14:24 Temperature Pulse Rate 79 79 Respiratory Rate Blood Pressure 121/76 113/79 Pulse Oximetry 100 05/31/24 14:26 05/31/24 14:28 05/31/24 14:30 Temperature Pulse Rate 83 77 76 Respiratory Rate Blood Pressure 115/70 115/74 113/74 Pulse Oximetry 100 05/31/24 14:31 05/31/24 14:32 05/31/24 14:34 Temperature Pulse Rate 94 202 H Respiratory Rate Blood Pressure 114/76 110/48 L Pulse Oximetry 100 05/31/24 14:36 05/31/24 14:41 05/31/24 14:45 Temperature Pulse Rate 78 87 Respiratory Rate Blood Pressure 112/92 H 121/78 Pulse Oximetry 100 97 05/31/24 14:46 05/31/24 14:51 05/31/24 14:54 Temperature 98.2 F Pulse Rate Respiratory Rate Blood Pressure Pulse Oximetry 100 98 05/31/24 14:56 05/31/24 15:00 02/26/25 15:01 Temperature Pulse Rate 59 L Respiratory Rate Blood Pressure 89/47 L Pulse Oximetry 98 94 05/31/24 15:05 05/31/24 15:10 05/31/24 15:15 Temperature Pulse Rate 70 82 Respiratory Rate Blood Pressure 116/72 112/84 Pulse Oximetry 97 100 98 05/31/24 15:20 05/31/24 15:25 05/31/24 15:30 Temperature Pulse Rate 78 Respiratory Rate Blood Pressure 118/74 Pulse Oximetry 99 97 100 05/31/24 15:35 05/31/24 15:40 05/31/24 15:45 Temperature Pulse Rate 81 Respiratory Rate Blood Pressure 121/76 Pulse Oximetry 100 100 100 05/31/24 15:47 05/31/24 15:52 05/31/24 15:57 Temperature Pulse Rate Respiratory Rate Blood Pressure Pulse Oximetry 96 99 99 05/31/24 16:00 05/31/24 16:02 05/31/24 16:07 Temperature Pulse Rate 87 Respiratory Rate Blood Pressure 114/76 Pulse Oximetry 92 99 05/31/24 16:07 05/31/24 16:12 05/31/24 16:15 Temperature Pulse Rate 93 Respiratory Rate Blood Pressure 126/97 H Pulse Oximetry 96 100 05/31/24 16:17 05/31/24 16:19 05/31/24 16:24 Temperature Pulse Rate Respiratory Rate Blood Pressure Pulse Oximetry 100 99 100 05/31/24 16:29 05/31/24 16:31 05/31/24 16:34 Temperature Pulse Rate 103 H Respiratory Rate Blood Pressure 172/122 H Pulse Oximetry 100 98 05/31/24 16:39 05/31/24 16:44 05/31/24 16:46 Temperature Pulse Rate 107 H Respiratory Rate Blood Pressure 150/87 H Pulse Oximetry 100 100 05/31/24 16:47 05/31/24 17:00 05/31/24 17:15 Temperature 97.7 F Pulse Rate 86 Respiratory Rate Blood Pressure 120/68 Pulse Oximetry 96 05/31/24 17:16 05/31/24 17:31 05/31/24 17:32 Temperature Pulse Rate 139 H 90 76 Respiratory Rate Blood Pressure 129/91 H 117/100 H 120/76 Pulse Oximetry 05/31/24 17:45 05/31/24 18:00 05/31/24 18:15 Temperature Pulse Rate 91 82 89 Respiratory Rate Blood Pressure 131/77 123/76 124/69 Pulse Oximetry 05/31/24 18:20 05/31/24 18:30 05/31/24 18:45 Temperature 98.1 F Pulse Rate 84 81 Respiratory Rate Blood Pressure 125/76 126/74 Pulse Oximetry 05/31/24 19:00 05/31/24 19:40 05/31/24 22:20 Temperature 97.7 F 97.5 F L Pulse Rate 85 81 76 Respiratory Rate 16 18 Blood Pressure 127/76 116/74 118/77 Pulse Oximetry 97 97 06/01/24 04:15 Temperature 97.8 F Pulse Rate 65 Respiratory Rate 18 Blood Pressure 115/79 Pulse Oximetry 100 H&P: Results Labs Labs: Short CBC 06/01/24 Range/Units 04:25 Hgb 13.4 (12.0-15.0) g/dL Hct 40.1 (37.0-47.0) % Assessment and Plan Assessment and plan (1) Oligohydramnios: Code(s): O41.00X0 - Oligohydramnios, unspecified trimester, not applicable or unspecified Status: Acute Assessment and Plan: Will proceed with induction of labor with cytotec. (2) Gestational hypertension: Code(s): O13.9 - Gestational [-induced] hypertension without significant proteinuria, unspecified trimester Status: Acute
--- NOTE | 2024-06-01 07:48 | PM.OBPNLAB ---
Pain Control Date/time seen: 05/31/24 07:45 Cat 1, mild ctx, cervix /-2, AROM blood tinged. Will monitor for labor progression, Pitocin if needed.
--- NOTE | 2024-06-01 07:49 | PM.OBPRVD ---
OB - Vaginal Delivery Note Procedure Delivery date: 06/01/24 Events: Gestational Hypertension and Oligohydramnios Induction method: Per Misoprostol Protocol Delivery augmentation: Rupture of Membranes and Pitocin Delivery monitor: External FHT Route of delivery: Laceration Description: Perineal - 2nd Degree Delivery repair: vicryl (3.0 vicryl) Specimen: Yes (palcenta and cord) Quantitative Blood Loss (ml): 200 Anesthesia type: Epidural Disposition: Floor Complications: No immediate complications Narrative: She was admitted on 05/30 for cytotec induction due to oligohydramnios and gestational hypertension without severe symptoms. She had AROM morning of 05/31, blood tinged. She continued to contract. She had epidural placed on request. She did receive Pitocin for augmentation. She dilated to complete. Peds present for . She delivered a male . Nose and mouth suctioned at perineum. Nuchal cord was surgically reduced. The anterior shoulder and the rest of infant delivered and placed on maternal abdomen. taken to warmer. Pitocin started. Placenta delivered spontaneously and intact. She did sustain a second degree perineal laceration which was repaired with 2.0 vicryl. She tolerated procedure well. Baby Date of : 05/31/24 Time of : 16:46 Gestational Age by Date: 36 Infant gender: Male Weight (pounds): 6 Weight (ounces): 1 presentation: vertex position: Left Occiput Anterior Placenta delivery description: Spontaneous Cord Vessel Description: 3 Vessels, Nuchal Cord, Tight and Reduced (surgically) score one minute: 2 score five minutes: 9
[2024-06-01 08:00] VITALS: PULSE 76; RESP 16; O2SAT 98
--- NOTE | 2024-06-01 08:20 | PC.NURSE ---
Nursery RN called for feeding assistance. Baby is trying to latch but is not able to maintain suction. Mom has baby in cradle hold on the right breast. He is eager and gives great attempts. Mom has short shanked nipples and baby struggles to hang on. Mom agrees to try a nipple shield. Baby is able to latch to the shield but continues to click when sucking. He is able to move his tongue past his bottom gums but when he is back in the warmer he needs to have a good assessment on his oral anatomy. Encouraged mom to be consistent with pumping while baby is learning and using the shield. Instructed on appropriate shield use. Mom is encouraged to call for assistance with future feedings. Reported to Nursery RN.
[2024-06-01] MEDS: ACETAMINOPHEN 325 MG TABLET 650 MG PO ×2 (08:57→20:40)
[2024-06-01] MEDS: MULTIVIT/MIN/PREN/FOL AC/IRON TABLET 1 TAB PO (08:57)
[2024-06-01] MEDS: DOCUSATE SODIUM 100 MG CAPSULE PO (08:57)
[2024-06-01 12:09] VITALS: BP 99/63; PULSE 80; RESP 16; TEMP 36.6; O2SAT 99
--- NOTE | 2024-06-01 15:22 | WPDANLDPN2 ---
Anes-Prog Note L&D Date/Time: 06/01/24 15:22 Comfortable throughout: labor and delivery Neuraxial method: epidural Epidural/Spinal procedure site: clean & non-tender Neuro status: Neuro function grossly intact. Cardiovascular status: normal Respiratory status: normal Airway patency: baseline Mental status: baseline Post-Op hydration status: normal Vital Signs: Last Vital Signs Temp 36.6 C 06/01/24 12:09 Pulse 80 06/01/24 12:09 Resp 16 06/01/24 12:09 BP 99/63 L 06/01/24 12:09 Pulse Ox 99 06/01/24 12:09 O2 Del Method Room Air 06/01/24 08:00 Pain score (VAS): 2 I/O: Intake & Output 05/31/24 06/01/24 06/01/24 23:59 07:59 15:59 Intake Total 250 Output Total 250 500 Balance -250 -250 Post-procedural complaints: none Patient feedback: Patient satisfied with anesthetic care.
--- NOTE | 2024-06-01 16:02 | PC.NURSE ---
On 06/01/24, the [facility] accounts payable manager, Peg, provided care and completed [employer] documentation on this patient. I have reviewed the student's documentation and agree with the findings.
[2024-06-01 16:08] VITALS: BP 118/81; PULSE 70; RESP 20; TEMP 36.8; O2SAT 99
--- NOTE | 2024-06-01 20:50 | PM.OBPNVD ---
OB - PN: Subj Subjective Date/time seen: 06/01/24 20:50 Patient comments: pain well controlled, tolerating diet and other (Decreasing lochia.) OB - PN: Obj Data Labs 06/01/24 04:25 Labs: Laboratory Results - last 24 hr 06/01/24 04:25 Hgb 13.4 Hct 40.1 OB - PN A/P Plan day: 1 Plan: routine care Comments: Patient doing well. Time Spent With Patient Time: Total time spent is greater than 50% in coordination of care (as documented) at patient's floor/unit and/or counseling patient: Exam Psych: Affect: normal affect Other: Abd: fundus firm below umbilicus, nontender Perineum: healing Ext: nontender
[2024-06-01 21:40] VITALS: BP 132/80; PULSE 84; RESP 16; TEMP 36.9; O2SAT 97
[2024-06-02 07:39] VITALS: BP 119/69; PULSE 68; RESP 12; TEMP 36.2
[2024-06-02 08:00] VITALS: PULSE 68; RESP 16; O2SAT 97
--- NOTE | 2024-06-02 08:52 | PM.OBPNVD ---
OB - PN: Subj Subjective Date/time seen: 06/02/24 08:52 Patient comments: pain well controlled, tolerating diet and other (Decreasing lochia.) OB - PN: Obj Data Labs 06/01/24 04:25 OB - PN A/P Plan day: 2 Plan: discharge home and other Comments: Patient doing well. Follow up 4-6 weeks. Discharge instructions provided. Time Spent With Patient Time: Total time spent is greater than 50% in coordination of care (as documented) at patient's floor/unit and/or counseling patient: Time with patient: less than 15 minutes Exam Psych: Affect: normal affect Other: Abd: fundus firm below umbilicus, nontender Ext: nontender
--- NOTE | 2024-06-02 08:53 | PM.OBDSVD ---
DS: Admitting Diagnosis Discharge Date 06/02/24 Admitting Diagnosis Gestational hypertension Oligohydramnios Vaginal delivery DS: Discharge Diagnosis Discharge Diagnosis (1) Oligohydramnios: Code(s): O41.00X0 - Oligohydramnios, unspecified trimester, not applicable or unspecified Status: Acute (2) Gestational hypertension: Code(s): O13.9 - Gestational [-induced] hypertension without significant proteinuria, unspecified trimester Status: Acute OB - DS: Summary Hospital Course Hospital Course: She was admitted for induction of labor due to gestational hypertension and oligohydramnios. She had an uncomplicated vaginal delivery. She did well . Baby was not discharged. She will be discharged to [facility]. Discharge precautions discussed. OB Procedures : Ultrasound OB Procedures Intrapartum: Spontaneous Vag Delivery OB Procedures: : None Peripartum Data Delivery Method: Natural Vaginal Laceration Description: Perineal - 2nd Degree complications: none Status at Discharge Functional status at discharge: independent ambulation Time Spent with Patient Time attestation: Total time spent providing and/or coordinating discharge services: Exam Const: General: cooperative Orientation/consciousness: oriented to person, oriented to place and oriented to time HENMT: Face/Nose/Sinus: Normal external nose present Eyes: General: appearance normal, both eyes and all related structures Resp: Effort & Inspection: normal respiratory effort GI: Inspection: normal to inspection Skin: General skin exam: normal color Neuro: General: oriented to person, oriented to place and oriented to time Extrem: General: normal to inspection and no calf tenderness Psych: Appearance: grossly normal Mental Status: mental status grossly normal DS: Data Data Completed and Pending Pending studies at discharge: Pending at discharge 05/31/24 17:51 Surgical [PTH] Routine Discharge Plan Discharge Attending physician on discharge: Frederick Luciano Consulting providers: Connie Macedo Discharging Clinician: Frederick Luciano Anticipated Discharge Date/Time: 06/02/24 08:57 Patient Disposition: Home, Self-Care Activity: may shower and pelvic rest Diet: regular Patient Instructions: Antibiotic Form Patient Language: Romanian Stand Alone Forms: General Discharge Information Follow-up/Referrals: Frederick Luciano MD [Physician] - Call for Appointment Discharge Medications: No Action K2 Plus D3 1,000-100 unit-mcg tablet 1 tablet PO DAILY omega-3 fatty acids 1,000 mg capsule 1,000 mg PO DAILY PNV #[id number] 30 mg iron-10 mg iron-1 mg capsule PO Date of admission: 05/30/24 16:52 Primary Care Provider: UNKNOWN,DOCTOR Admitting Provider: Frederick Luciano Attending physician on admission: Frederick Luciano Condition: Stable
--- NOTE | 2024-06-02 09:04 | PC.NURSE ---
All nursing care and charting performed by student nurse Melissa Lindquist, was reviewed by this RN/Clinical Instructor.
--- NOTE | 2024-06-02 11:50 | PC.NURSE ---
Introductions were made to mother and father, then consulted with patient to assess needs related to . Mother led the conversation with her?plans to feed?her and the?experience so far. Encouraged understanding of the benefits of skin to skin (demonstrating unwrapping and placing upright on her chest), stimulating with massage touch, changing positions to encourage wakefulness, how to watch for early feeding cues, responsive feeding, feeding on demand (aiming for 8-12 times in 24 hours, about every 2-3 hours), milk production, building/maintaining a milk supply, duration of feeding, signs of adequate intake/output and how to record on the feeding sheet. Mother works well with her infant with encouragement and education. Reviewed positioning and ear, shoulder, hip alignment, supporting the breast to facilitate a deep latch, asymmetrical latch (off-center), leading with the chin with a big, open, wide gape and body close to mother. Infant latched optimally to the [right] breast in [cross cradle] position. Education given to the mother of how to visualize the suckling (with good rocking jaw motion), swallows (dropping of the lower jaw) and how to listen for drinking at the breast (the ka sound). Infant was [unable] to maintain latch and father of baby was going to give a formula bottle, baby changed to 22 calorie formula today due to 12.6% weight loss and mother was now going to use her hospital breast pump. Instructions given on cleaning, care, usage, that there should be no pain, pumping schedule for milk production, collection, and storage of human milk. Patient was assessed for correct placement, flange size (both nipples measured 19mm, using size 24 flange), to pump for comfort and nipple stretching/stimulation for adequate milk production every 3 hours (8 times in 24 hours) 1-2 times at night. Parents are encouraged to record the pumping schedule on the feeding sheet.?Mother voiced understanding of the education shared along with mom/baby guide and the pump measurement, flange fit handout for additional resource information. RN also reviewed comfort measures of healing with a warm, wet washcloth to rinse breast, then leave open to air-dry, good handwashing when or touching the breast/nipples to prevent infection. Mother voiced understanding of skin to skin, stimulating with massage touch, responsive feedings, hand expressed colostrum, talking to to encourage if it has been 2 -2.5 hours since the start of the last , to call if does not latch, or if there is discomfort with . Resources used for education were facilitated with the [visual educational handouts/ tool/mom and baby guide], Inpatient/outpatient resources provided with business card, feeding sheet, name written on the communication board, and the mom/baby guide. Parents voiced understanding of information, demonstrated learning and will call if there is a request for assistance. Reported to the Primary RN. Copy placed in baby's chart, as mother is later a NO Care Bed
[2024-06-02 11:58] VITALS: BP 101/48; PULSE 64; RESP 16; TEMP 36.6; O2SAT 97
[2024-06-02] MEDS: DOCUSATE SODIUM 100 MG CAPSULE PO (12:06)
[2024-06-02] MEDS: MULTIVIT/MIN/PREN/FOL AC/IRON TABLET 1 TAB PO (12:06)
--- NOTE | 2024-06-03 11:45 | PC.NURSE ---
Consulted with mother concerning needs and she shared her ability to independently use her breast pump without pain, she feels that her milk is coming in and has been attempting to latch baby on an off. Baby is still a patient as he is being monitored for weight loss. Mother is feeding appropriately for growth of and understands stimulating infant to eat if needed. Reinforced understanding of milk production, transition of milk, signs of adequate intake, transition of stool, prevention/relief of engorgement, plugged ducts, mastitis, responsive /bottle feeding, watching for feeding cues, the different methods of stimulating infant to breastfeed 1-3 hours after the start of the last feeding, community resources, and when to call a provider using the resource of the feeding sheet along with the mom and baby guide. Mother voiced understanding of the information shared, when to call for assistance, denies any additional assistance or education at this time. Reported to the Primary RN.
--- NOTE | 2024-06-04 11:53 | PC.NURSE ---
Patient cancelled her follow up appointment for 06/05/24 11:00am at [facility], her baby was transferred today to [facility] and she will call Dr. Luciano's office for an appointment.
== END 2024-06-02 18:30 | disposition home or self-care (01) | DRG 806 ==
LOC: ANHLDR 16:56 → ANHOB2 05-31 20:52
PROVIDERS: Admitting Provider Obstetrics & Gynecology; Visit Provider Obstetrics & Gynecology
DX: O13.4 Gestational [pregnancy-induced] hypertension without significant proteinuria, complicating childbirth (principal); O41.03X0 Oligohydramnios, third trimester, not applicable or unspecified; Z37.0 Single live birth; Z3A.36 36 weeks gestation of pregnancy; O70.1 Second degree perineal laceration during delivery; O69.1XX0 Labor and delivery complicated by cord around neck, with compression, not applicable or unspecified
CPT/HCPCS: 36415; 84112; 85014; 85018; 86592; 86593; 86703; 86850; 86900; 86901; 88307; A9270; G0432; J0290; J2590; J2795; J7120